=== PATIENT | male | born 1980 | race African-American/Black ===

== ENCOUNTER 2017-05-04 13:59 | Emergency (ER) | payer OTHER ==
[~2017-05-04] VITALS: Ht 177.8 cm; Wt 111.1 kg
[~2017-05-04 13:59] MED LIST: ALBUTEROL SULF8.5 GM INH; CLINDAMYCIN HC300 MG ORAL; ENALAPRIL MALEAT5 MG ORAL; FLEXERIL10 MG PO; METOPROLOL TART25 MG ORAL; NAPROXEN375 MG PO; NEXIUM40 MG ORAL; NORCO 5-325 TA1 EAC1 ORAL; NORCO 5-325 TA1 EACH ORAL; NORVIR100 MG ORAL; PREZISTA400 MG ORAL; RANITIDINE HCL150 MG ORAL; TRUVADA 200 MG1 EAC1 ORAL; ZITHROMAX250 MG ORAL
[2017-05-04 14:28] VITALS: BP 156/110
[2017-05-04] MEDS ORDERED: Albuterol/Ipratropium 3ml neb HHN ONE (14:45)
[2017-05-04] MEDS ORDERED: Naproxen 500mg tab ORAL ONE (14:45)
--- NOTE | 2017-05-04 14:47 | Emergency Room Report ---
History of Present Illness General Chief Complaint: Upper Respiratory Illness Source: Patient, Medical Record Present Illness HPI Patient is a 36-year-old male presented after increased cough and difficulty breathing for the past 3 days. Patient prior history of HIV. He had reportedly been taking inhalers. He denies productive cough. The patient reports having some subjective fever and headache. Allergies: Coded Allergies: AMOXICILLIN (Unverified Allergy, Severe, rash, 12/23/13) Patient History Past Medical History: see triage record Reviewed Nursing Documentation: PMH: Agreed, PSxH: Agreed Nursing Documentation-PMH Past Medical History: No History, Except For Hx Cardiac Problems: No - HIV Hx Hypertension: Yes Hx Asthma: Yes - BRONCHITIS Hx Cancer: No - CMV Hx Gastrointestinal Problems: Yes - HERNIA Hx Neurological Problems: Yes - INSOMNIA, DEPRESSION, Review of Systems All Other Systems: negative except mentioned in HPI Physical Exam Vital Signs Date Time Temp Pulse Resp B/P (MAP) Pulse Ox O2 Delivery O2 Flow Rate FiO2 05/04/17 14:07 99.5 104 18 156/110 98 Room Air General Appearance: well appearing, no apparent distress, alert, GCS 15 Head: normocephalic, atraumatic ENT: hearing grossly normal, normal voice Neck: full range of motion, supple Respiratory: no respiratory distress, speaking full sentences, wheezing Cardiovascular #1: normal inspection, regular rate, rhythm, no edema Gastrointestinal: normal inspection Musculoskeletal: normal inspection, back normal, digits/nails normal, no calf tenderness Neurologic: normal inspection, alert, oriented x3, responsive, normal gait Psychiatric: mood/affect normal Skin: no rash Medical Decision Making Diagnostic Impression: Primary Impression: Asthma ER Course Patient presented for shortness of breath. Differential diagnosis included but was not limited to bronchitis, pneumonia, pulmonary embolism, pericarditis, asthma, foreign body. Patient is given nebulized albuterol with improvement. Patient was given steroids. Repeat lung exam showed improved breath sounds.The patient is advised to follow up with primary care doctor in 1-2 days. Patient is advised to return if any worsening condition or if any changes in status that are concerning. This report is dictated with [employer] residential treatment staff software which may occasionally lead to discrepancies related to use of this software. Last Vital Signs Date Time Temp Pulse Resp B/P (MAP) Pulse Ox O2 Delivery O2 Flow Rate FiO2 05/04/17 14:28 99.5 18 156/110 98 Room Air 05/04/17 14:28 104 Status: improved Disposition: HOME, SELF-CARE Condition: Stable Scripts Albuterol Sulfate* (ALBUTEROL SULFATE HHN*) 2.5 Mg/3 Ml Vial.neb 2.5 MG HHN Q4H Y for Shortness of Breath, #25 VIAL Prov: Juan Luis Garcia 05/04/17 Prednisone* (PREDNISONE*) 20 Mg Tablet 40 MG ORAL DAILY, #10 TAB Prov: Juan Luis Garcia 05/04/17 Albuterol Sulfate* (ALBUTEROL SULFATE MDI*) 8.5 Gm Hfa.aer.ad 2 PUFF INH Q4H, #1 INH 0 Refills Prov: Juan Luis Garcia 05/04/17 Naproxen* (NAPROXEN*) 375 Mg Tablet. 375 MG ORAL TWICE A DAY, #20 TAB Prov: Juan Luis Garcia 05/04/17 Juan Luis Garcia May 04, 2017 14:47
[2017-05-04] MEDS ORDERED: ALBUTEROL SULF8.5 GM INH (15:25)
[2017-05-04] MEDS ORDERED: PREDNISONE20 MG ORAL (15:25)
[2017-05-04] MEDS ORDERED: NAPROXEN375 M2 ORAL (15:25)
--- NOTE | 2017-05-04 15:52 | Diagnostic Imaging Report ---
Indication: Reason For Exam: SOB Technique: One view of the chest Comparison: 09/17/2015 Findings: Lungs and pleural spaces are clear. Heart size is normal . No significant change Impression: No acute process
[2017-05-04 16:02] VITALS: BP 146/90
[2017-05-04] MEDS ORDERED: ALBUTEROL2.5 MG/3 M HHN ×2 (16:05→16:27)
== END 2017-05-04 16:26 | disposition home or self-care (01) ==
LOC: EMR 16:20
DX: R05 Cough (principal); R06.02 Shortness of breath; I10 Essential (primary) hypertension; J45.909 Unspecified asthma, uncomplicated; Z88.0 Allergy status to penicillin; F32.9 Major depressive disorder, single episode, unspecified; G47.00 Insomnia, unspecified
CPT/HCPCS: 71045; 94640; 94664; 96372; 99283; J0780; J7620

== ENCOUNTER 2018-09-10 19:16 | Emergency (ER) | payer MEDICAID, OTHER ==
[~2018-09-10] VITALS: Ht 177.8 cm; Wt 90.7 kg
[~2018-09-10 19:16] MED LIST changes: +ALBUTEROL2.5 MG/3 M HHN; +NAPROXEN375 M2 ORAL; +PREDNISONE20 MG ORAL
[2018-09-10 19:25] VITALS: BP 162/123
--- NOTE | 2018-09-10 19:25 | NUR ---
ED Nurse Note: Pt ambulated to ED from home c/o cough for 2-3 days and chest tightness. VSS, BP 163/123, aware
[2018-09-10] MEDS ORDERED: HYDROCHLOROTH12.5 M2 ORAL (19:33)
[2018-09-10] MEDS ORDERED: LISINOPRIL1 GM MC (19:33)
[2018-09-10] MEDS ORDERED: GENVOYA TABLET1 EACH PO (19:33)
--- NOTE | 2018-09-10 19:40 | Emergency Room Report ---
History of Present Illness General Chief Complaint: Asthma Source: Patient Present Illness HPI Patient presents with complaints of cough and congestion Reports ongoing for the past several days He was using his inhaler earlier today with minimal relief He does have a history of asthma as well Denies any chest pain denies any pleurisy Denies any vomiting or diarrhea Patient reports being on diuretics along with lisinopril Patient has had coughing episodes in the past Allergies: Coded Allergies: AMOXICILLIN (Unverified Allergy, Severe, rash, 12/23/13) Patient History Past Medical History: see triage record Pertinent Family History: none Reviewed Nursing Documentation: PMH: Agreed; PSxH: Agreed Nursing Documentation-PMH Hx Cardiac Problems: No - HIV Hx Hypertension: Yes Hx Asthma: Yes Hx Cancer: No - CMV Hx Gastrointestinal Problems: Yes - CMB Hx Neurological Problems: Yes - INSOMNIA, DEPRESSION, Review of Systems All Other Systems: negative except mentioned in HPI Physical Exam Vital Signs Date Time Temp Pulse Resp B/P (MAP) Pulse Ox O2 Delivery O2 Flow Rate FiO2 09/10/18 19:22 98.1 77 17 162/123 (136) 100 Room Air Sp02 EP Interpretation: reviewed, normal General Appearance: well appearing, no apparent distress Head: normocephalic, atraumatic Eyes: bilateral eye PERRL, bilateral eye EOMI ENT: hearing grossly normal, normal pharynx, TMs + canals normal, uvula midline Neck: full range of motion, supple, no meningismus, no bony tend Respiratory: no rhonchi, no respiratory distress, no retraction, no accessory muscle use, wheezing - Finding wheezing bilaterally with mild crackles Cardiovascular #1: normal peripheral pulses, regular rate, rhythm, no edema, no gallop, no JVD, no murmur Gastrointestinal: normal bowel sounds, non tender, soft, no mass, no organomegaly, non-distended, no guarding, no hernia, no pulsatile mass, no rebound Genitourinary: no CVA tenderness Musculoskeletal: normal inspection Neurologic: oriented x3, responsive, seasonal recruiter III-XII nml as tested, motor strength/ tone normal, sensory intact Psychiatric: mood/affect normal Skin: normal color, no rash, warm/dry, palpation normal Lymphatic: normal inspection, no adenopathy Medical Decision Making Diagnostic Impression: Primary Impression: Asthma attack Additional Impression: Cough ER Course Patient is a fairly complex patient with multiple differential to consideration including but not limited to cardiac cardiopulmonary and vascular emergencies I feel that there is possible component regarding medication reaction with lisinopril as well Patient has had previous coughing episodes and could be potentially showing some signs of adverse reaction X-ray imaging does not show any acute disease patient continues to rest without any obvious discomfort feels improved with breathing treatment and is stable for close outpatient follow-up Chest X-Ray Diagnostic Results Chest X-Ray Diagnostic Results : Chest X-Ray Ordered: Yes # of Views/Limited/Complete: 1 View Indication: Chest Pain EP Interpretation: Yes Interpretation: no consolidation, no effusion, no pneumothorax Impression: No acute disease Electronically Signed by: Adam Burt DO Last Vital Signs Date Time Temp Pulse Resp B/P (MAP) Pulse Ox O2 Delivery O2 Flow Rate FiO2 09/10/18 19:25 77 23 Room Air 09/10/18 19:25 98.3 162/123 100 Status: improved Disposition: HOME, SELF-CARE Condition: Improved Scripts Promethazine Hcl (PROMETHAZINE HCL*) 6.25 Mg/5 Ml Syrup 5 ML ORAL Q8H for 7 Days, #120 ML 0 Refills Prov: Adam Burt DO 09/10/18 Additional Instructions: Patient is provided with the discharge instructions notified to follow up with primary doctor in the next 2-3 days otherwise return to the er with any worsening symptoms. Please note that this report is being documented using [employer] technology. This can lead to erroneous entry secondary to incorrect interpretation by the dictating instrument. Adam Burt DO Sep 10, 2018 19:40
[2018-09-10] MEDS ORDERED: Levalbuterol Inh UD 1.25mg/0.5ml HHN ONE (19:45)
[2018-09-10] MEDS ORDERED: HYDROcodone/Acetamin 10/325 tab ORAL ONE (20:15)
[2018-09-10] MEDS ORDERED: PROMETHAZI6.25 MG/1 ORAL (20:59)
[2018-09-10] MEDS ORDERED: guaiFENesin w/Codeine 5ml Liq ud ORAL ONE (21:00)
[2018-09-10 21:02] VITALS: BP 163/122
--- NOTE | 2018-09-10 21:10 | NUR ---
ER DISCHARGE NOTE: Patient is cleared to be discharged per ERMD, pt is aox4, on room air, with stable vital signs. pt was given dc and prescription instructions, pt was able to verbalize understanding, pt id band removed. pt is able to ambulate with steady gait. pt took all belongings.
--- NOTE | 2018-09-11 12:21 | Diagnostic Imaging Report ---
Indication: Dyspnea Comparison: 05/04/2017 A single view chest radiograph was obtained. Findings: Cardiomediastinal appearance is within normal limits for age. The lungs are clear. Pulmonary vascularity is appropriate. The diaphragmatic contour is smooth and costophrenic angles are sharp. No pleural effusions are identified. The bones are unremarkable. Impression: No acute findings
== END 2018-09-10 22:41 | disposition home or self-care (01) ==
LOC: EMR 19:49
DX: J45.901 Unspecified asthma with (acute) exacerbation (principal); R05 Cough; Z88.0 Allergy status to penicillin; B20 Human immunodeficiency virus [HIV] disease; I10 Essential (primary) hypertension; F32.9 Major depressive disorder, single episode, unspecified; G47.00 Insomnia, unspecified
CPT/HCPCS: 71045; 94640; 94664; 99284; J7512; J7644